=== PATIENT | male | born 1950 | race Hispanic/Latino ===

== ENCOUNTER 2020-09-13 19:28 | Emergency (ER) | payer MEDICARE ==
[~2020-09-13] VITALS: Ht 170.2 cm; Wt 92.5 kg
[2020-09-13 20:55] LABS: BASOPHILS % 0.2 % (0.0-1.0); EOSINOPHILS % 0.2 % (0.0-6.0); HEMATOCRIT 36.5 % (38.2-49.6); HEMOGLOBIN 13.2 g/dL (14.0-18.0); LYMPHOCYTES # (AUTO) 1.4 (1.0-3.2); LYMPHOCYTES % 25.9 % (18.0-39.1); MEAN CORPUSCULAR HEMOGLOBIN 31.7 pg (28-32); MEAN CORPUSCULAR HGB CONC 36.2 g/dL (31-35); MEAN CORPUSCULAR VOLUME 87.5 fL (81-99); MONOCYTES # (AUTO) 0.7 (0.2-0.8); MONOCYTES % 13.9 % (4.4-11.3); NEUTROPHILS # (AUTO) 3.1 (2.1-6.9); NEUTROPHILS % 59.6 % (38.7-80.0); PLATELET COUNT 133 x10e3/uL (140-360); RED BLOOD COUNT 4.17 x10e6/uL (4.3-5.7); RED CELL DISTRIBUTION WIDTH 11.9 % (11.7-14.4)
[2020-09-13 20:55] LABS: CLARITY,URINE SL CLOUDY (CLEAR); COLOR,URINE YELLOW (YELLOW); KETONES,URINE TRACE (NEGATIVE); LEUKOCYTE ESTERASE ,URINE NEGATIVE (NEGATIVE); NITRITE,URINE NEGATIVE (NEGATIVE); PROTEIN,URINE DIPSTICK NEGATIVE (NEGATIVE); URINE UROBILINOGEN 0.2 mg/dL (0.2 - 1)
[2020-09-13 21:06] LABS: ALANINE AMINOTRANSFERASE 62 IU/L (0-55); ALBUMIN 3.7 g/dL (3.5-5.0); ALBUMIN/GLOBULIN RATIO 1.1 (0.8-2.0); ALKALINE PHOSPHATASE 59 IU/L (40-150); ANION GAP 15.4 mmol/L (8-16); BLOOD UREA NITROGEN 11 mg/dL (7-26); BUN/CREATININE RATIO 10 (6-25); CALCIUM 8.2 mg/dL (8.4-10.2); CARBON DIOXIDE 23 mmol/L (22-29); CHLORIDE 91 mmol/L (98-107); CREATININE, SERUM 1.14 mg/dL (0.72-1.25); EST GLOMERULAR FILTRATION RATE > 60 ML/MIN (60-); GLUCOSE 123 mg/dL (74-118); POTASSIUM 3.4 mmol/L (3.5-5.1); SODIUM 126 mmol/L (136-145)
[2020-09-13 21:47] VITALS: BP 143/70
[2020-09-13] MEDS ORDERED: BAMLANIVIMAB 700 MG/20 ML VIAL IV ONE (22:45)
[2020-09-13] MEDS ORDERED: BAMLANIVIMAB IV ONE (22:51)
[2020-09-13] MEDS: SODIUM CHLORIDE 0.9% 250ML 250 ML IV ONE ×2 (23:30→23:45)
[2020-09-18] MEDS ORDERED: LORATADINE10 MG PO (18:04)
[2020-09-18] MEDS ORDERED: TOPROL XL25 MG PO (18:04)
[2020-09-18] MEDS ORDERED: Multivitamins/Minerals PO (18:04)
[2020-09-18] MEDS ORDERED: TESSALON PERLE100 MG PO (18:04)
[2020-09-18] MEDS ORDERED: Guaifenesin/Dextromethorphan NG (18:04)
[2020-09-18] MEDS ORDERED: SINGULAIR10 MG PO (18:04)
[2020-09-18] MEDS ORDERED: SODIUM CHLORIDE1 GM PO (18:07)
== END 2020-09-14 01:30 | disposition home or self-care (01) ==
LOC: ER 20:32
DX: U07.1 COVID-19 (principal); R50.9 Fever, unspecified; R53.1 Weakness; I10 Essential (primary) hypertension
CPT/HCPCS: 36415; 71045; 80053; 81001; 83605; 85025; 87040; 99284 ×2; U0002

== ENCOUNTER 2020-09-15 20:40 | Inpatient (IN) | payer MEDICARE ==
[~2020-09-15] VITALS: Ht 170.2 cm; Wt 92.5 kg
[2020-09-15 22:46] LABS: BASOPHILS % 0.3 % (0.0-1.0); EOSINOPHILS % 0.3 % (0.0-6.0); HEMATOCRIT 33.7 % (38.2-49.6); HEMOGLOBIN 12.6 g/dL (14.0-18.0); LYMPHOCYTES # (AUTO) 1.3 (1.0-3.2); MEAN CORPUSCULAR HEMOGLOBIN 31.5 pg (28-32); MEAN CORPUSCULAR HGB CONC 37.4 g/dL (31-35); MEAN CORPUSCULAR VOLUME 84.3 fL (81-99); MONOCYTES # (AUTO) 0.5 (0.2-0.8); MONOCYTES % 12.2 % (4.4-11.3); NEUTROPHILS # (AUTO) 1.9 (2.1-6.9); NEUTROPHILS % 50.9 % (38.7-80.0); PLATELET COUNT 147 x10e3/uL (140-360); RED CELL DISTRIBUTION WIDTH 11.3 % (11.7-14.4)
[2020-09-15 23:02] LABS: AMYLASE 51 U/L (25-125); LIPASE 21 U/L (8-78)
[2020-09-15 23:05] LABS: ALANINE AMINOTRANSFERASE 57 IU/L (0-55); ALBUMIN 3.8 g/dL (3.5-5.0); ALBUMIN/GLOBULIN RATIO 1.1 (0.8-2.0); ALKALINE PHOSPHATASE 60 IU/L (40-150); ANION GAP 17.4 mmol/L (8-16); BLOOD UREA NITROGEN 9 mg/dL (7-26); BUN/CREATININE RATIO 9 (6-25); CALCIUM 8.1 mg/dL (8.4-10.2); CARBON DIOXIDE 22 mmol/L (22-29); CHLORIDE 83 mmol/L (98-107); CREATINE KINASE 1172 IU/L (30-200); CREATININE, SERUM 0.96 mg/dL (0.72-1.25); EST GLOMERULAR FILTRATION RATE > 60 ML/MIN (60-); GLUCOSE 114 mg/dL (74-118); POTASSIUM 3.4 mmol/L (3.5-5.1)
[2020-09-15 23:06] LABS: SODIUM 119 mmol/L (136-145)
[2020-09-16] VITALS (7 sets, daily range): BP systolic 121–142; BP diastolic 63–80
[2020-09-16] MEDS: SODIUM CHLORIDE 0.9% 1000ML 1,000 ML IV SCH ×3 (00:53→21:15)
[2020-09-16] MEDS ORDERED: DEXTROSE 50% SYRINGE 50 ML IV PRN (01:15)
[2020-09-16] MEDS: CEFTRIAXONE SOD 2 GM/NS 100 ML 100 ML IV SCH ×2 (01:42→11:06)
[2020-09-16] MEDS: AZITHROMYCIN 500MG/NS 250 ML 250 ML IV SCH ×2 (02:39→11:06)
[2020-09-16 06:47] LABS: CLARITY,URINE CLEAR (CLEAR); COLOR,URINE YELLOW (YELLOW); KETONES,URINE NEGATIVE (NEGATIVE); LEUKOCYTE ESTERASE ,URINE NEGATIVE (NEGATIVE); NITRITE,URINE NEGATIVE (NEGATIVE); PROTEIN,URINE DIPSTICK NEGATIVE (NEGATIVE); URINE UROBILINOGEN 0.2 mg/dL (0.2 - 1)
[2020-09-16] MEDS ORDERED: ACETAMINOPHEN 325 MG TAB PO PRN (07:00)
[2020-09-16 07:06] LABS: BACTERIA,URINE RARE /HPF; EPITHELIAL CELLS,URINE RARE /LPF; RBC,URINE 0-5 /HPF (0-5); WBC,URINE (MAN) 0-5 /HPF (0-5)
[2020-09-16] MEDS ORDERED: IOPAMIDOL 370 MG/ML 200 ML INFUS..BTL INJ ONE (07:26)
[2020-09-16] MEDS: INSULIN REGULAR, HUMAN 100 UNIT/1 ML 3ML VIAL SQ SCH ×4 (07:30→22:19)
[2020-09-16] MEDS ORDERED: ONDANSETRON HCL INJ 2MG/ML 2ML 2 MG/ML VIAL IV PRN ×2 (07:45→13:45)
[2020-09-16] MEDS ORDERED: DEXAMETHASONE SOD PHOS 10 MG/1 ML VIAL IV SCH (09:00)
[2020-09-16 09:31] LABS: BASOPHILS % 0.2 % (0.0-1.0); EOSINOPHILS % 0.3 % (0.0-6.0); LYMPHOCYTES # (AUTO) 1.4 (1.0-3.2); LYMPHOCYTES % 20.9 % (18.0-39.1); MEAN CORPUSCULAR HEMOGLOBIN 31.8 pg (28-32); MEAN CORPUSCULAR HGB CONC 37.1 g/dL (31-35); MEAN CORPUSCULAR VOLUME 85.6 fL (81-99); MONOCYTES # (AUTO) 0.8 (0.2-0.8); MONOCYTES % 11.3 % (4.4-11.3); NEUTROPHILS # (AUTO) 4.4 (2.1-6.9); NEUTROPHILS % 66.8 % (38.7-80.0); PLATELET COUNT 157 x10e3/uL (140-360); RED BLOOD COUNT 4.09 x10e6/uL (4.3-5.7); RED CELL DISTRIBUTION WIDTH 11.3 % (11.7-14.4)
[2020-09-16 10:24] LABS: ALANINE AMINOTRANSFERASE 57 IU/L (0-55); ALBUMIN 3.6 g/dL (3.5-5.0); ALBUMIN/GLOBULIN RATIO 1.1 (0.8-2.0); ALKALINE PHOSPHATASE 58 IU/L (40-150); ANION GAP 15.4 mmol/L (8-16); BLOOD UREA NITROGEN 9 mg/dL (7-26); BUN/CREATININE RATIO 9 (6-25); CALCIUM 8.3 mg/dL (8.4-10.2); CARBON DIOXIDE 22 mmol/L (22-29); CHLORIDE 86 mmol/L (98-107); CREATININE, SERUM 0.96 mg/dL (0.72-1.25); EST GLOMERULAR FILTRATION RATE > 60 ML/MIN (60-); GLUCOSE 115 mg/dL (74-118); POTASSIUM 3.4 mmol/L (3.5-5.1); SODIUM 120 mmol/L (136-145)
[2020-09-16] MEDS: BENZONATATE 100 MG CAP PO SCH ×3 (11:06→21:15)
[2020-09-16] MEDS: ZINC SULFATE 220 MG CAP PO SCH (11:06)
[2020-09-16] MEDS: ENOXAPARIN 30 MG/0.3 ML SYR SC SCH ×2 (11:06→16:40)
[2020-09-16] MEDS: MULTIVITAMINS/MINERALS TAB PO SCH (11:06)
[2020-09-16] MEDS: LORATADINE 10 MG TAB PO SCH (11:06)
[2020-09-16] MEDS: ASCORBIC ACID 500 MG TAB PO SCH ×2 (11:06→16:40)
[2020-09-16] MEDS: CHOLECALCIFEROL 1,000 UNIT TAB PO SCH (11:06)
[2020-09-16] MEDS ORDERED: KAPSPARGO SPRIN50 MG (11:52)
[2020-09-16] MEDS ORDERED: METOPROLOL SUCC50 MG PO (11:52)
[2020-09-16] MEDS ORDERED: TRIBENZOR 40-51 EAC1 PO (11:53)
[2020-09-16] MEDS ORDERED: OLMESARTAN MEDO20 MG (11:53)
[2020-09-16] MEDS ORDERED: LEVOTHYROXINE50 MCG PO (11:54)
[2020-09-16] MEDS: GUAIFENESIN/DEXTROMETHORPHAN LIQD 5 ML UDC NG SCH ×2 (14:17→21:15)
[2020-09-16] MEDS: MONTELUKAST SODIUM 10 MG TAB PO SCH (21:15)
[2020-09-16] MEDS: METOPROLOL SUCCINATE 25 MG TAB XL PO SCH (21:15)
[2020-09-16] MEDS: ZOLPIDEM TARTRATE 5 MG TAB PO PRN (22:56)
[2020-09-17] VITALS (8 sets, daily range): BP systolic 110–142; BP diastolic 48–74
[2020-09-17] MEDS: GUAIFENESIN/DEXTROMETHORPHAN LIQD 5 ML UDC NG SCH ×3 (06:00→21:43)
[2020-09-17 06:01] LABS: BASOPHILS % 0.2 % (0.0-1.0); HEMATOCRIT 33.2 % (38.2-49.6); HEMOGLOBIN 11.9 g/dL (14.0-18.0); LYMPHOCYTES # (AUTO) 1.4 (1.0-3.2); LYMPHOCYTES % 29.3 % (18.0-39.1); MEAN CORPUSCULAR HEMOGLOBIN 31.2 pg (28-32); MEAN CORPUSCULAR HGB CONC 35.8 g/dL (31-35); MEAN CORPUSCULAR VOLUME 86.9 fL (81-99); MONOCYTES # (AUTO) 0.7 (0.2-0.8); MONOCYTES % 13.6 % (4.4-11.3); NEUTROPHILS # (AUTO) 2.7 (2.1-6.9); NEUTROPHILS % 56.7 % (38.7-80.0); PLATELET COUNT 187 x10e3/uL (140-360); RED BLOOD COUNT 3.82 x10e6/uL (4.3-5.7); RED CELL DISTRIBUTION WIDTH 11.8 % (11.7-14.4)
[2020-09-17] MEDS: SODIUM CHLORIDE 0.9% 1000ML 1,000 ML IV SCH ×2 (06:13→16:04)
[2020-09-17 06:23] LABS: ALANINE AMINOTRANSFERASE 52 IU/L (0-55); ALBUMIN 3.3 g/dL (3.5-5.0); ALKALINE PHOSPHATASE 51 IU/L (40-150); ANION GAP 14.5 mmol/L (8-16); BLOOD UREA NITROGEN 10 mg/dL (7-26); BUN/CREATININE RATIO 10 (6-25); CARBON DIOXIDE 24 mmol/L (22-29); CHLORIDE 91 mmol/L (98-107); CREATININE, SERUM 1.02 mg/dL (0.72-1.25); EST GLOMERULAR FILTRATION RATE > 60 ML/MIN (60-); GLUCOSE 96 mg/dL (74-118); POTASSIUM 3.5 mmol/L (3.5-5.1); SODIUM 126 mmol/L (136-145)
[2020-09-17] MEDS: INSULIN REGULAR, HUMAN 100 UNIT/1 ML 3ML VIAL SQ SCH ×4 (07:30→20:12)
[2020-09-17] MEDS: LORATADINE 10 MG TAB PO SCH (07:54)
[2020-09-17] MEDS: ASCORBIC ACID 500 MG TAB PO SCH ×2 (07:54→16:04)
[2020-09-17] MEDS: BENZONATATE 100 MG CAP PO SCH ×3 (07:54→21:43)
[2020-09-17] MEDS: ZINC SULFATE 220 MG CAP PO SCH (07:54)
[2020-09-17] MEDS: MULTIVITAMINS/MINERALS TAB PO SCH (07:54)
[2020-09-17] MEDS: CHOLECALCIFEROL 1,000 UNIT TAB PO SCH (07:54)
[2020-09-17] MEDS: METOPROLOL SUCCINATE 25 MG TAB XL PO SCH ×2 (07:54→21:43)
[2020-09-17] MEDS: ENOXAPARIN 30 MG/0.3 ML SYR SC SCH ×2 (07:55→16:04)
[2020-09-17] MEDS ORDERED: GADOBENATE DIMEGLUMINE 1 ML IV ONE (10:08)
[2020-09-17] MEDS ORDERED: SODIUM CHLORIDE 0.9% 50ML 50 ML ONE (10:08)
[2020-09-17] MEDS: PANTOPRAZOLE 40 MG 10ML VIAL IV SCH (16:04)
[2020-09-17] MEDS: SODIUM CHLORIDE 1 GM TAB PO SCH (21:43)
[2020-09-17] MEDS: MONTELUKAST SODIUM 10 MG TAB PO SCH (21:43)
[2020-09-17] MEDS: ZOLPIDEM TARTRATE 5 MG TAB PO PRN (22:36)
[2020-09-18] VITALS: BP 148/72
[2020-09-18 04:00] VITALS: BP 161/84
[2020-09-18 06:15] LABS: FERRITIN 344.81 ng/mL (21.81-274.66)
[2020-09-18 06:34] LABS: BASOPHILS % 0.2 % (0.0-1.0); EOSINOPHILS % 0.2 % (0.0-6.0); HEMATOCRIT 31.2 % (38.2-49.6); HEMOGLOBIN 11.2 g/dL (14.0-18.0); LYMPHOCYTES # (AUTO) 1.1 (1.0-3.2); LYMPHOCYTES % 18.3 % (18.0-39.1); MEAN CORPUSCULAR HEMOGLOBIN 31.7 pg (28-32); MEAN CORPUSCULAR HGB CONC 35.9 g/dL (31-35); MEAN CORPUSCULAR VOLUME 88.4 fL (81-99); MONOCYTES # (AUTO) 0.9 (0.2-0.8); MONOCYTES % 14.8 % (4.4-11.3); NEUTROPHILS # (AUTO) 3.8 (2.1-6.9); NEUTROPHILS % 66.2 % (38.7-80.0); PLATELET COUNT 181 x10e3/uL (140-360); RED BLOOD COUNT 3.53 x10e6/uL (4.3-5.7); RED CELL DISTRIBUTION WIDTH 11.9 % (11.7-14.4)
[2020-09-18] MEDS: INSULIN REGULAR, HUMAN 100 UNIT/1 ML 3ML VIAL SQ SCH ×2 (07:30→11:30)
[2020-09-18 07:45] LABS: ALANINE AMINOTRANSFERASE 57 IU/L (0-55); ALKALINE PHOSPHATASE 48 IU/L (40-150); ANION GAP 14.4 mmol/L (8-16); BLOOD UREA NITROGEN 9 mg/dL (7-26); BUN/CREATININE RATIO 10 (6-25); CALCIUM 7.5 mg/dL (8.4-10.2); CARBON DIOXIDE 20 mmol/L (22-29); CHLORIDE 100 mmol/L (98-107); CREATININE, SERUM 0.89 mg/dL (0.72-1.25); EST GLOMERULAR FILTRATION RATE > 60 ML/MIN (60-); GLUCOSE 94 mg/dL (74-118); POTASSIUM 3.4 mmol/L (3.5-5.1); SODIUM 131 mmol/L (136-145)
[2020-09-18 08:00] VITALS: BP 161/84
[2020-09-18 09:07] VITALS: BP 149/65
[2020-09-18] MEDS: MULTIVITAMINS/MINERALS TAB PO SCH (09:10)
[2020-09-18] MEDS: PANTOPRAZOLE 40 MG 10ML VIAL IV SCH (09:10)
[2020-09-18] MEDS: LORATADINE 10 MG TAB PO SCH (09:10)
[2020-09-18] MEDS: BENZONATATE 100 MG CAP PO SCH ×2 (09:10→15:48)
[2020-09-18] MEDS: METOPROLOL SUCCINATE 25 MG TAB XL PO SCH (09:11)
[2020-09-18] MEDS: CHOLECALCIFEROL 1,000 UNIT TAB PO SCH (09:11)
[2020-09-18] MEDS: ASCORBIC ACID 500 MG TAB PO SCH ×2 (09:11→17:15)
[2020-09-18] MEDS: ZINC SULFATE 220 MG CAP PO SCH (09:11)
[2020-09-18] MEDS: ENOXAPARIN 30 MG/0.3 ML SYR SC SCH ×2 (09:11→17:15)
[2020-09-18] MEDS: SODIUM CHLORIDE 0.9% 1000ML 1,000 ML IV SCH (09:13)
[2020-09-18 12:58] VITALS: BP 118/69
[2020-09-18] MEDS: SODIUM CHLORIDE 1 GM TAB PO SCH ×2 (15:48→15:49)
[2020-09-18] MEDS: GUAIFENESIN/DEXTROMETHORPHAN LIQD 5 ML UDC NG SCH ×2 (15:48→15:49)
[2020-09-18] MEDS ORDERED: POTASSIUM CHLORIDE 10MEQ EA PO ONE (17:00)
[2020-09-18 17:16] VITALS: BP 132/68
[2020-09-18] MEDS ORDERED: SINGULAIR10 MG PO (18:04)
[2020-09-18] MEDS ORDERED: TESSALON PERLE100 MG PO (18:04)
[2020-09-18] MEDS ORDERED: LORATADINE10 MG PO (18:04)
[2020-09-18] MEDS ORDERED: Guaifenesin/Dextromethorphan NG (18:04)
[2020-09-18] MEDS ORDERED: TOPROL XL25 MG PO (18:04)
[2020-09-18] MEDS ORDERED: Multivitamins/Minerals PO (18:04)
[2020-09-18] MEDS ORDERED: SODIUM CHLORIDE1 GM PO (18:07)
== END 2020-09-18 19:43 | disposition home or self-care (01) | DRG 177 ==
LOC: ER 21:49 → ERHOLD 09-16 01:16 → IMCU 09-16 08:00
PROVIDERS: ADMIT Internal Medicine; ATTEND Internal Medicine
PROC: 8E0ZXY6 Isolation (ICD-10-PCS; principal; 2020-09-16)
DX: U07.1 COVID-19 (principal); J12.82 Pneumonia due to coronavirus disease 2019; M62.82 Rhabdomyolysis; E87.1 Hypo-osmolality and hyponatremia; D72.819 Decreased white blood cell count, unspecified; K76.0 Fatty (change of) liver, not elsewhere classified; E03.9 Hypothyroidism, unspecified; I10 Essential (primary) hypertension; R74.01 Elevation of levels of liver transaminase levels; E66.9 Obesity, unspecified; Z68.32 Body mass index [BMI] 32.0-32.9, adult
CPT/HCPCS: 36415; 74177; 74183; 80053; 81001; 82150; 82550; 82553; 82607; 82728; 82746; 82948; 83540; 83690; 83880; 84295; 84466; 84484; 85025; 85045; 93005; 96361; 99284; J0456; J0696; J1100; J1650; J1817; J7030; Q9967